=== PATIENT | female | born 1990 | race Caucasian/White ===

== ENCOUNTER 2021-10-14 20:54 | Inpatient (IN) ==
[2021-10-14 23:15] LABS: Urine Benzodiazepine Screen None Detected (None Detect); Urine Cannabinoids Screen None Detected (None Detect); Urine Opiates Screen None Detected (None Detect)
[2021-10-14] MEDS ORDERED: RHO D Immune Globulin (HUMAN) 300 MCG = 1,500 I.U. INJ IM PRN (23:18)
[2021-10-14] MEDS ORDERED: Witch Hazel PAD JAR TOPICAL PRN (23:18)
[2021-10-14] MEDS ORDERED: Lactated Ringers 1000 ml BAG 1,000 ML IV SCH (23:45)
[2021-10-15] MEDS: Dibucaine 1% OINT 28.35 GM TUBE PR PRN ×2 (02:00→11:58)
[2021-10-15] MEDS ORDERED: Lidocaine 1% VIAL 10 MG/ML VIAL ONE (03:15)
[2021-10-15 07:27] LABS: ABS Basophils 0.1 10^3/ul (0-0.2); ABS Lymphocytes 1.3 10^3/ul (1.0-4.8); ABS Neutrophils 11.5 10^3/ul (1.5-7.7); Eosinophil % 0.1 %; Hematocrit 34 % (35-47); Hemoglobin 11.7 g/dL (12.0-16.0); Lymphocyte % 9.3 %; Mean Corpuscular HGB Conc 34 g/dL (31-36); Mean Corpuscular Hemoglobin 31 pg (27-31); Mean Corpuscular Volume 92 fL (80-97); Mean Platelet Volume 7.8 fL (7.4-10.4); Platelet Count 245 10^3/uL (150-450); Red Blood Count 3.74 10^6 /uL (3.70-4.87); Red Cell Distribution Width 13 % (10-15); White Blood Count 13.9 10^3/uL (3.5-10.8)
[2021-10-15] MEDS ORDERED: RHO D Immune Globulin (HUMAN) 300 MCG = 1,500 I.U. INJ IM ONE (17:03)
[2021-10-16 13:54] VITALS: BP 110/56
== END 2021-10-16 14:55 | disposition home or self-care (01) | DRG 807 ==
LOC: MCHOBOUT 20:54 → MCHOB 21:02
PROVIDERS: ADMIT Midwife; ATTEND Advanced Practice Midwife

== ENCOUNTER 2023-11-20 16:02 | Inpatient (IN) ==
[2023-11-20] MEDS ORDERED: Lactated Ringers 1000 ml BAG 1,000 ML IV ONE (17:20)
[2023-11-20] MEDS ORDERED: Buffered Lidocaine 1% SYRIN 1 ml INTRADERM ONE (17:20)
[2023-11-20] MEDS ORDERED: Lidocaine 1% VIAL 10 MG/ML 30 ML VIAL INJ PRN (17:20)
[2023-11-20] MEDS ORDERED: Lactated Ringers 1000 ml BAG 1,000 ML IV SCH (18:00)
[2023-11-20 18:04] LABS: Rapid COVID-19 Molecular Undetected (Undetected)
[2023-11-20 18:09] LABS: Influenza A Molecular Negative (Negative); Influenza B Molecular Negative (Negative)
[2023-11-20 18:19] LABS: Urine Benzodiazepine Screen None Detected (None Detect); Urine Cannabinoids Screen None Detected (None Detect); Urine Opiates Screen None Detected (None Detect)
[2023-11-20] MEDS ORDERED: Dibucaine 1% OINT 28.35 GM TUBE PR PRN (21:37)
[2023-11-20] MEDS ORDERED: RHO D Immune Globulin (HUMAN) 300 MCG = 1,500 I.U. INJ IM PRN (21:37)
[2023-11-20] MEDS ORDERED: Glycerin ADULT 2.4 gm SUPP PR PRN (21:37)
[2023-11-20] MEDS ORDERED: Witch Hazel PAD JAR TOPICAL PRN (21:37)
[2023-11-21 06:54] LABS: ABS Lymphocytes 2.4 10^3/uL (1.0-4.8); ABS Nucleated RBC 0.01 10^3/ul; Hematocrit 30.4 % (35-45); Hemoglobin 10.4 g/dL (11.5-14.3); Lymphocyte % 16.8 %; Mean Corpuscular Hemoglobin 29.5 pg (27-33); Mean Corpuscular Hgb Conc 34.1 g/dL (31-36); Mean Corpuscular Volume 86.6 fL (80-97); Mean Platelet Volume 7.4 fL (7.5-11.2); Nucleated Red Blood Cells % 0.1 %/100WBC (0.0-0.8); Platelet Count 290 10^3/uL (150-450); Red Blood Count 3.51 10^6/uL (3.63-4.92); Red Cell Distribution Width 13.1 % (12-17); White Blood Count 14.6 10^3/uL (3.8-11.8)
[2023-11-22 08:18] VITALS: BP 106/66
== END 2023-11-22 13:53 | disposition home or self-care (01) | DRG 807 ==
LOC: MCHOBOUT 16:02 → MCHOB 17:03
PROVIDERS: ADMIT Midwife; ATTEND Midwife